=== PATIENT | female | born 1990 | race Caucasian/White ===

== ENCOUNTER 2017-04-08 22:52 | Emergency (ER) | payer MEDICAID ==
[2017-04-08 23:29] VITALS: BP 123/78
== END 2017-04-08 23:29 | disposition home or self-care (01) ==
LOC: ED 22:52
DX: B34.9 Viral infection, unspecified (principal); J45.909 Unspecified asthma, uncomplicated; Z91.018 Allergy to other foods; Z91.013 Allergy to seafood